=== PATIENT | male | born 1940 | race African-American/Black ===

== ENCOUNTER 2017-09-04 11:54 | Observation (INO) ==
[2017-09-04] MEDS ORDERED: ONDANSETRON 4 MG/2 ML VIAL IV STA (12:35)
[2017-09-04] MEDS ORDERED: HYDROmorphone 2 MG/1 ML VIAL IV STA (12:35)
[2017-09-04 12:49] LABS: Basophils % 0.2 % (0.0-0.8); Eosinophils % 0.1 % (0.00-10.9); Hematocrit 49.7 VOL% (42.0-52.0); Hemoglobin 16.8 GM/DL (14.0-18.0); Immature Granulocytes % 0.5 %; Immature Granulocytes Absolute 0.07 #; Lymphocytes # 0.6 10*3/uL (1.4-4.0); Lymphocytes % 4.4 % (21.2-54.2); Mean Corpuscular HGB Conc 33.8 GM/DL (32-36); Mean Corpuscular Hemoglobin 30 PG (27-34); Mean Corpuscular Volume 87.3 FL (87-102); Mean Platelet Volume 10.1 FL (9.6-12.0); Monocytes # 0.7 10*3/uL (0.11-0.8); Monocytes % 5.1 % (1.7-12.7); Neutrophils # 12.4 10*3/uL (1.4-7.4); Neutrophils % 89.7 % (38.7-73.9); Platelet Count 286 T/CUMM (130-400); Red Blood Count 5.69 MC/CUMM (3.8-5.5); White Blood Count 13.9 T/CUMM (4-12)
[2017-09-04] MEDS ORDERED: ONDANSETRON 4 MG/2 ML VIAL ONE (12:50)
[2017-09-04] MEDS ORDERED: HYDROmorphone 2 MG/1 ML VIAL ONE (12:50)
[2017-09-04 13:00] LABS: Apearance,Urine CLEAR (Clear); Bacteria,Urine Occasional /HPF (Few); Bilirubin,Urine Negative (Negative); Blood, Urine Negative (Negative); Glucose,Urine (UA) Negative (Negative); Ketones,Urine Negative (Negative); Mucus,Urine Occasional /LPF (Occasional); Nitrite,Urine Negative (Negative); Protein,Urine 30 MG/DL; RBC,Urine 1 /HPF (0-4); Squamous Epithelial Cell,Urine Occasional /HPF (0-10); Urine Color Yellow (Yellow); Urine Specific Gravity 1.014 (1.001-1.035); WBC,Urine 1 /HPF (0-6)
[2017-09-04 13:15] LABS: Albumin 3.8 G/DL (3.4-5.0); Bilirubin,Total 0.9 MG/DL (0.2-1.0); Calcium 9.3 MG/DL (8.5-10.1); Osmolality,Calculated 267.4 MOS/KG (273-304); Total Protein 8.2 G/DL (6.4-8.3)
[2017-09-04 13:52] LABS: Lactic Acid 1.2 MMOL/L (0.4-2.0)
[2017-09-04] MEDS ORDERED: ONDANSETRON 4 MG/2 ML VIAL IV PRN (15:47)
[2017-09-04] MEDS ORDERED: ACETAMINOPHEN 325 MG TABLET PO PRN (15:47)
[2017-09-04] MEDS: DEXTROSE 5% NACL 0.45% 1,000 ML IV SCH (18:01)
[2017-09-04] MEDS: PIPERACILLIN/TAZOBACTAM 3,375 MG in SODIUM CHLORIDE 0.9% 100 ML IV SCH (18:01)
[2017-09-04] MEDS: ENALAPRIL 10 MG TABLET PO SCH (22:03)
[2017-09-04] MEDS: amLODIPine 10 MG TABLET PO SCH (22:04)
[2017-09-05] MEDS: PIPERACILLIN/TAZOBACTAM 3,375 MG in SODIUM CHLORIDE 0.9% 100 ML IV SCH ×3 (00:49→16:49)
[2017-09-05 03:23] LABS: Basophils % 0.2 % (0.0-0.8); Eosinophils % 0.1 % (0.00-10.9); Hematocrit 44.2 VOL% (42.0-52.0); Hemoglobin 15.2 GM/DL (14.0-18.0); Immature Granulocytes % 0.7 %; Immature Granulocytes Absolute 0.12 #; Lymphocytes # 1.5 10*3/uL (1.4-4.0); Lymphocytes % 9.2 % (21.2-54.2); Mean Corpuscular HGB Conc 34.4 GM/DL (32-36); Mean Corpuscular Hemoglobin 30 PG (27-34); Mean Corpuscular Volume 85.7 FL (87-102); Mean Platelet Volume 11.5 FL (9.6-12.0); Monocytes # 1.3 10*3/uL (0.11-0.8); Monocytes % 7.9 % (1.7-12.7); Neutrophils # 13.8 10*3/uL (1.4-7.4); Neutrophils % 81.9 % (38.7-73.9); Platelet Count 182 T/CUMM (130-400); Red Blood Count 5.16 MC/CUMM (3.8-5.5); Red Cell Distribution Width 12.5 % (9.3-17.3); White Blood Count 16.8 T/CUMM (4-12)
[2017-09-05 03:55] LABS: Calcium 8.5 MG/DL (8.5-10.1); Osmolality,Calculated 268.2 MOS/KG (273-304); Potassium 3.7 MMOL/L (3.5-5.1)
[2017-09-05 04:00] LABS: Albumin 3.2 G/DL (3.4-5.0); Bilirubin,Direct 0.46 MG/DL (0.0-0.20); Bilirubin,Indirect 1.4 MG/DL (0.0-1.0); Bilirubin,Total 1.9 MG/DL (0.2-1.0); Total Protein 6.9 G/DL (6.4-8.3)
[2017-09-05 05:39] LABS: Platelet Estimate Normal; Polychromasia Few
[2017-09-05] MEDS ORDERED: HYDROmorphone 2 MG/1 ML VIAL IV ONE (09:11)
[2017-09-05] MEDS: ENOXAPARIN 40 MG/0.4 ML SYRINGE SUBCUT SCH (09:51)
[2017-09-05] MEDS: PANTOPRAZOLE 40 MG TABLET PO SCH (09:54)
[2017-09-05] MEDS: SIMVASTATIN 20 MG TABLET PO SCH (09:54)
[2017-09-05] MEDS: ENALAPRIL 10 MG TABLET PO SCH ×2 (10:01→21:21)
[2017-09-05] MEDS: hydroCHLOROthiazide 25 MG TABLET PO SCH (10:01)
[2017-09-05] MEDS ORDERED: TISSUE ADHESIVE 1 EACH APPLICATOR TOP ONE (13:40)
[2017-09-05] MEDS ORDERED: LIDOCAINE 1%/EPI INJ 20 ML VIAL ONE (13:40)
[2017-09-05] MEDS ORDERED: BUPIVACAINE MPF 0.25% /EPI 30 ML VIAL ONE (13:40)
[2017-09-05] MEDS ORDERED: SEVOFLURANE 1 UNIT/15 MINUTE INH ONE (15:19)
[2017-09-05] MEDS ORDERED: PROPOFOL 200 MG/20 ML VIAL IV ONE (15:19)
[2017-09-05] MEDS ORDERED: ACETAMINOPHEN 1,000 MG/100 ML VIAL IV ONE (15:20)
[2017-09-05] MEDS ORDERED: ROCURONIUM 100 MG/10 ML VIAL IV ONE (15:20)
[2017-09-05] MEDS: amLODIPine 10 MG TABLET PO SCH (21:21)
[2017-09-05] MEDS: MORPHINE 4 MG/1 ML VIAL IV PRN (21:22)
[2017-09-05] MEDS: DEXTROSE 5% NACL 0.45% 1,000 ML IV SCH ×3 (21:23→23:12)
[2017-09-06] MEDS: PIPERACILLIN/TAZOBACTAM 3,375 MG in SODIUM CHLORIDE 0.9% 100 ML IV SCH ×3 (00:36→16:17)
[2017-09-06 05:37] LABS: Basophils % 0.3 % (0.0-0.8); Hematocrit 43.4 VOL% (42.0-52.0); Hemoglobin 14.6 GM/DL (14.0-18.0); Immature Granulocytes % 0.6 %; Immature Granulocytes Absolute 0.09 #; Lymphocytes # 0.8 10*3/uL (1.4-4.0); Mean Corpuscular HGB Conc 33.6 GM/DL (32-36); Mean Corpuscular Hemoglobin 29 PG (27-34); Mean Corpuscular Volume 86.8 FL (87-102); Mean Platelet Volume 10.8 FL (9.6-12.0); Monocytes # 0.9 10*3/uL (0.11-0.8); Monocytes % 6.1 % (1.7-12.7); Neutrophils # 13.5 10*3/uL (1.4-7.4); Platelet Count 303 T/CUMM (130-400); Red Cell Distribution Width 12.8 % (9.3-17.3); White Blood Count 15.4 T/CUMM (4-12)
[2017-09-06 06:12] LABS: Calcium 8.1 MG/DL (8.5-10.1); Osmolality,Calculated 272.1 MOS/KG (273-304); Potassium 3.6 MMOL/L (3.5-5.1)
[2017-09-06] MEDS: MORPHINE 4 MG/1 ML VIAL IV PRN (08:16)
[2017-09-06] MEDS: SIMVASTATIN 20 MG TABLET PO SCH (08:21)
[2017-09-06] MEDS: hydroCHLOROthiazide 25 MG TABLET PO SCH (08:21)
[2017-09-06] MEDS: ENOXAPARIN 40 MG/0.4 ML SYRINGE SUBCUT SCH (08:21)
[2017-09-06] MEDS: PANTOPRAZOLE 40 MG TABLET PO SCH (08:21)
[2017-09-06] MEDS: ENALAPRIL 10 MG TABLET PO SCH ×2 (08:21→20:51)
[2017-09-06] MEDS ORDERED: KETOROLAC 30 MG/1 ML VIAL IV ONE (10:48)
[2017-09-06] MEDS: DEXTROSE 5% NACL 0.45% 1,000 ML IV SCH ×3 (15:33→21:32)
[2017-09-06] MEDS: KETOROLAC 15 MG/1 ML VIAL IV SCH ×2 (17:08→22:39)
[2017-09-06] MEDS: amLODIPine 10 MG TABLET PO SCH (20:51)
[2017-09-07] MEDS: PIPERACILLIN/TAZOBACTAM 3,375 MG in SODIUM CHLORIDE 0.9% 100 ML IV SCH ×2 (00:41→09:05)
[2017-09-07] MEDS: KETOROLAC 15 MG/1 ML VIAL IV SCH ×2 (05:10→11:29)
[2017-09-07 05:44] LABS: Basophils % 0.2 % (0.0-0.8); Eosinophils # 0.2 10*3/uL (0.0-0.87); Eosinophils % 2.2 % (0.00-10.9); Hematocrit 37.3 VOL% (42.0-52.0); Hemoglobin 12.5 GM/DL (14.0-18.0); Immature Granulocytes % 0.5 %; Immature Granulocytes Absolute 0.05 #; Lymphocytes # 0.7 10*3/uL (1.4-4.0); Lymphocytes % 6.7 % (21.2-54.2); Mean Corpuscular HGB Conc 33.5 GM/DL (32-36); Mean Corpuscular Hemoglobin 29 PG (27-34); Mean Corpuscular Volume 87.8 FL (87-102); Mean Platelet Volume 10.1 FL (9.6-12.0); Monocytes # 0.8 10*3/uL (0.11-0.8); Monocytes % 7.9 % (1.7-12.7); Neutrophils # 8.3 10*3/uL (1.4-7.4); Neutrophils % 82.5 % (38.7-73.9); Platelet Count 230 T/CUMM (130-400); Red Blood Count 4.25 MC/CUMM (3.8-5.5); Red Cell Distribution Width 12.7 % (9.3-17.3)
[2017-09-07 06:14] LABS: Calcium 7.7 MG/DL (8.5-10.1); Potassium 3.6 MMOL/L (3.5-5.1)
[2017-09-07] MEDS: ENOXAPARIN 40 MG/0.4 ML SYRINGE SUBCUT SCH (09:02)
[2017-09-07] MEDS: PANTOPRAZOLE 40 MG TABLET PO SCH (09:02)
[2017-09-07] MEDS: ENALAPRIL 10 MG TABLET PO SCH (09:02)
[2017-09-07] MEDS: SIMVASTATIN 20 MG TABLET PO SCH (09:02)
[2017-09-07] MEDS: hydroCHLOROthiazide 25 MG TABLET PO SCH (09:03)
[2017-09-07 10:59] VITALS: BP 148/79
== END 2017-09-07 13:57 | disposition home or self-care (01) ==
LOC: EDUNIT# → EDBD → N.ED 11:54 → N.EDINP 11:54 → N.3E 17:09
PROVIDERS: ADMIT Surgery; ATTEND Family Medicine
PROC: LAPCHOL (2017-09-05 13:50)